=== PATIENT | female | born 1955 | race Caucasian/White ===

== ENCOUNTER → 2016-12-14 | Outpatient (CLI) | payer MEDICARE, OTHER ==
[~2016-12-14] VITALS: Ht 149.9 cm; Wt 58.1 kg
[~2016-12-14] MED LIST: ALEVE220 MG PO; CALCIUM500 MG PO; GLUCOSAMINE1000 MG PO; LIDOCAINE TOP; LIDODERM PATCH 51 EA TOP; LISINOPRIL10 MG PO; MACROBID 100 M100 MG PO; MIRALAX17 GM PO; MULTIVITAMINS1 EAC1 PO; NAPROSYN500 MG PO; NORCO 7.5-3251 EACH PO; SIMVASTATIN40 MG PO; VITAMIN B-12100 MCG PO; VITAMIN D400 UNI1 PO; VOLTAREN TOP; VOLTAREN100 GM TOP; ZOLEDRONIC ACID4 MG IV; reclast IV
== END ==
LOC: OPSV 08:54
DX: S22.000A Wedge compression fracture of unspecified thoracic vertebra, initial encounter for closed fracture (principal); M81.0 Age-related osteoporosis without current pathological fracture
CPT/HCPCS: 96365; J3489; J7050

== ENCOUNTER 2020-12-24 09:24 | Inpatient (IN) | payer MEDICARE, OTHER ==
[~2020-12-24] VITALS: Ht 149.9 cm; Wt 63.5 kg
[~2020-12-24 09:24] MED LIST changes: +IBUPROFEN800 MG PO; +PROTONIX40 MG PO; +VITAMIN D350000 UNIT PO
[2020-12-24 11:20] LABS: HEMOGLOBIN 13.3 gm/dl (12.3-15.3); RED BLOOD COUNT 4.31 M/UL (4.00-5.10); WHITE BLOOD COUNT 7.6 K/UL (4.5-11.0)
[2020-12-24 11:37] LABS: BUN/CREATININE RATIO 28 (0-10)
[2020-12-24] MEDS ORDERED: VITAMIN D325 MCG PO (13:55)
[2020-12-24] MEDS ORDERED: PROBIOTIC1 EAC1 PO (13:55)
[2020-12-24] MEDS ORDERED: VITAMIN E200 UNI3 PO (13:55)
[2020-12-24] MEDS ORDERED: PEPCID20 MG PO (13:56)
[2020-12-24] MEDS ORDERED: COLACE100 MG PO (13:56)
[2020-12-24] MEDS ORDERED: PROLIA INJ60 MG/1 ML SC (13:57)
--- NOTE | 2020-12-24 23:46 | NUR ---
1900 PT WAS IN ROOM WHEN I ARRIVED FOR MY SHIFT. PT WAS ASSESSMENT WAS DONE AT 1915, UNABLE TO CHANGE TIME ON PART 2 OF ASSESSMENT.
--- NOTE | 2020-12-24 23:54 | NUR ---
2024 TELEMETRY APPLIED TO PT PER MD ORDER.
--- NOTE | 2020-12-24 23:55 | NUR ---
2235 PT INSTRUCTED ON NOTHING TO EAT OR DRINK AFTER MIDNIGHT DUE TO CHEMICAL STRESS TEST.
--- NOTE | 2020-12-26 09:55 | NUR ---
PT TAKEN DOWN FOR HEART CATH AT 0824. NO S/SX OF DISTRESS NOTED. WCTM
[2020-12-27 03:13] LABS: HEMOGLOBIN 12.5 gm/dl (12.3-15.3); RED BLOOD COUNT 4.09 M/UL (4.00-5.10); WHITE BLOOD COUNT 7.7 K/UL (4.5-11.0)
[2020-12-27 03:37] LABS: BUN/CREATININE RATIO 22 (0-10)
[2020-12-27] MEDS ORDERED: CLOPIDOGREL75 MG PO (10:51)
[2020-12-27] MEDS ORDERED: ASPIRIN EC81 MG PO (10:51)
[2020-12-27] MEDS ORDERED: TOPROL XL25 MG PO (10:53)
== END 2020-12-27 15:58 | disposition home or self-care (01) | DRG 247 ==
LOC: ER1 09:24 → PROG CARE 12:56 → CDU 12:56 → M/S 18:15 → PROG CARE 12-26 11:41
PROVIDERS: Emergency Medicine; ADMIT Internal Medicine
PROC: 027135Z Dilation of Coronary Artery, Two Arteries with Two Drug-eluting Intraluminal Devices, Percutaneous Approach (ICD-10-PCS; principal; 2020-12-26)
PROC: 4A023N8 Measurement of Cardiac Sampling and Pressure, Bilateral, Percutaneous Approach (ICD-10-PCS; 2020-12-26)
PROC: B2111ZZ Fluoroscopy of Multiple Coronary Arteries using Low Osmolar Contrast (ICD-10-PCS; 2020-12-26)
PROC: B2151ZZ Fluoroscopy of Left Heart using Low Osmolar Contrast (ICD-10-PCS; 2020-12-26)
PROC: 3E033HZ Introduction of Radioactive Substance into Peripheral Vein, Percutaneous Approach (ICD-10-PCS; 2020-12-26)
PROC: B24BZZ4 Ultrasonography of Heart with Aorta, Transesophageal (ICD-10-PCS; 2020-12-26)
DX: I25.110 Atherosclerotic heart disease of native coronary artery with unstable angina pectoris (principal); I10 Essential (primary) hypertension; E78.5 Hyperlipidemia, unspecified; M81.0 Age-related osteoporosis without current pathological fracture; K21.9 Gastro-esophageal reflux disease without esophagitis; M19.90 Unspecified osteoarthritis, unspecified site; E78.00 Pure hypercholesterolemia, unspecified; F41.9 Anxiety disorder, unspecified; Z20.822 Contact with and (suspected) exposure to COVID-19; F17.210 Nicotine dependence, cigarettes, uncomplicated; R32 Unspecified urinary incontinence; K44.9 Diaphragmatic hernia without obstruction or gangrene; Z82.49 Family history of ischemic heart disease and other diseases of the circulatory system; Z86.39 Personal history of other endocrine, nutritional and metabolic disease; Z90.710 Acquired absence of both cervix and uterus; Z88.8 Allergy status to other drugs, medicaments and biological substances
CPT/HCPCS: ECHO; 36415; 71045; 78452; 80048; 80053; 82550; 82553; 83874; 83880; 84484; 85025; 85027; 85347; 93005; 93017; 93306; 96374; 96375; 99152; 99153; 99285; A9502; C1725; C1760; C1874; C1887; C9113; C9600; C9601; G0378; J0360; J0461; J1170; J1644; J1885; J2250; J2405; J2785; J3010; Q9963; Q9967; U0002

== ENCOUNTER → 2021-07-15 | Outpatient (CLI) | payer MEDICARE, OTHER ==
[~2021-07-15] MED LIST changes: +ASPIRIN EC81 MG PO; +CLOPIDOGREL75 MG PO; +COLACE100 MG PO; +PEPCID20 MG PO; +PROBIOTIC1 EAC1 PO; +PROLIA INJ60 MG/1 ML SC; +TOPROL XL25 MG PO; +VITAMIN D325 MCG PO; +VITAMIN E200 UNI3 PO
== END ==
LOC: MAMO 11:02
DX: Z12.31 Encounter for screening mammogram for malignant neoplasm of breast (principal)
CPT/HCPCS: 77063; 77067

== ENCOUNTER 2021-07-19 17:53 | Emergency (ER) | payer MEDICARE, OTHER ==
[2021-07-19 18:37] LABS: BORDETELLA PARAPERTUSSIS Not Detected (Not Detectd); BORDETELLA PERTUSSIS Not Detected (Not Detectd); CHLAMYDIA PNEUMONIAE Not Detected (Not Detectd); CORONAVIRUS HKU1 Not Detected (Not Detectd); CORONAVIRUS NL63 Not Detected (Not Detectd); CORONAVIRUS OC43 Not Detected (Not Detectd); CORONOAVIRUS 229E Not Detected (Not Detectd); HUMAN METAPNEUMOVIRUS Not Detected (Not Detectd); HUMAN RHINOVIRUS/ENTEROVIRUS Not Detected (Not Detectd); INFLUENZA A Not Detected (Not Detectd); INFLUENZA B Not Detected (Not Detectd); MYCOPLASMA PNEUMONIAE Not Detected (Not Detectd); PARAINFLUENZA VIRUS 1 Not Detected (Not Detectd); PARAINFLUENZA VIRUS 2 Not Detected (Not Detectd); PARAINFLUENZA VIRUS 3 Not Detected (Not Detectd); PARAINFLUENZA VIRUS 4 Not Detected (Not Detectd); RESPIRATORY SYNCYTIAL VIRUS Not Detected (Not Detectd)
[2021-07-19 18:38] LABS: HEMOGLOBIN 14.7 gm/dl (12.3-15.3); RED BLOOD COUNT 4.74 M/UL (4.00-5.10); WHITE BLOOD COUNT 7.8 K/UL (4.5-11.0)
[2021-07-19 19:03] LABS: BUN/CREATININE RATIO 15 (0-10)
[2021-07-19 19:56] LABS: SARS-CoV-2 NOT DETECTED (Not Detectd)
[2021-07-19] MEDS ORDERED: ZOFRAN4 MG PO (22:20)
== END 2021-07-19 22:30 | disposition home or self-care (01) ==
LOC: ER1 17:53
PROVIDERS: Physician Assistant Medical
DX: R06.02 Shortness of breath (principal); I10 Essential (primary) hypertension; M06.9 Rheumatoid arthritis, unspecified; F17.210 Nicotine dependence, cigarettes, uncomplicated; Z20.822 Contact with and (suspected) exposure to COVID-19
CPT/HCPCS: 71045; 80053; 81001; 82550; 82553; 83605; 83874; 83880; 84439; 84443; 84484; 85025; 85610; 87040; 87633; 93005; 96374; 99285; J2405

== ENCOUNTER 2021-09-30 18:12 | Emergency (ER) | payer MEDICARE, OTHER ==
[~2021-09-30 18:12] MED LIST changes: +ZOFRAN4 MG PO
== END 2021-09-30 20:08 | disposition home or self-care (01) ==
LOC: ER1 18:12
DX: M54.2 Cervicalgia (principal); F17.210 Nicotine dependence, cigarettes, uncomplicated; I11.9 Hypertensive heart disease without heart failure; Z95.5 Presence of coronary angioplasty implant and graft
CPT/HCPCS: 99283

== ENCOUNTER → 2021-11-12 | Outpatient (CLI) | payer MEDICARE, OTHER | LOC: KOH-I 11:54 | DX: R04.2 Hemoptysis (principal) | CPT/HCPCS: 71046 ==

== ENCOUNTER → 2021-12-24 | Outpatient (CLI) | payer MEDICARE, OTHER | LOC: NM 09:02 | DX: R42 Dizziness and giddiness (principal); I20.0 Unstable angina; R94.39 Abnormal result of other cardiovascular function study | CPT/HCPCS: A9502; J2785 ==

== ENCOUNTER → 2022-01-05 | Outpatient (CLI) | payer MEDICARE, OTHER | LOC: KOH-I 10:40 | DX: F17.210 Nicotine dependence, cigarettes, uncomplicated (principal) | CPT/HCPCS: 71271 ==

== ENCOUNTER → 2022-01-13 | Outpatient (CLI) | payer MEDICARE, OTHER | LOC: KOH-I 12:45 | DX: E04.1 Nontoxic single thyroid nodule (principal) | CPT/HCPCS: 76536 ==

== ENCOUNTER → 2022-02-19 | Outpatient (CLI) | payer MEDICARE, OTHER | LOC: KOH-I 10:24 | DX: M47.26 Other spondylosis with radiculopathy, lumbar region (principal); M43.16 Spondylolisthesis, lumbar region | CPT/HCPCS: 72100 ==

== ENCOUNTER → 2022-05-18 | Outpatient (CLI) | payer MEDICARE, OTHER | LOC: KOH-I 12:22 | DX: M47.26 Other spondylosis with radiculopathy, lumbar region (principal); W19.XXXA Unspecified fall, initial encounter | CPT/HCPCS: 72100 ==

== ENCOUNTER → 2022-06-24 | Outpatient (CLI) | payer MEDICARE, OTHER ==
[~2022-06-24] VITALS: Ht 149.9 cm; Wt 61.7 kg
== END ==
LOC: OPSV 11:50
DX: S22.000A Wedge compression fracture of unspecified thoracic vertebra, initial encounter for closed fracture (principal); M81.0 Age-related osteoporosis without current pathological fracture
CPT/HCPCS: 96372